=== PATIENT | male | born 1980 ===

== ENCOUNTER 2017-07-24 13:38 | Emergency (ER) | payer OTHER ==
[2017-07-24 14:05] VITALS: BP 118/72; PULSE 72; RESP 20; TEMP 98; O2SAT 100
[2017-07-24] MEDS ORDERED: Alum-Mag Hydrox-Simethicone Susp (30 mL) PO PRN (14:24)
--- NOTE | 2017-07-24 14:26 | C.PDOC ---
History Of Present Illness 37-year-old male w/o significant PMHx comes in for evaluation of painful swelling to right side of tongue noted two weeks ago. Pt also reports epigastric pain x1 month "after eating [employer] food." Pt reports, pain is intermittent associated with nausea. Otherwise, pt denies known trauma or injury , fever, chills, headache, weakness, neck pain, drooling, sore throat, chest pain , shortness of breath, cough, dyspnea, vomiting, hematemesis, melena, diarrhea, UTI sx. Ambulate to Ed for evaluation, not in any apparent distress.. Time Seen by Provider: 07/24/17 14:12 Chief Complaint (Nursing): ENT Problem History Per: Patient Onset/Duration Of Symptoms: Days Past Medical History Reviewed: Historical Data, Nursing Documentation, Vital Signs Vital Signs: Last Vital Signs Temp 98 F 07/24/17 14:02 Pulse 72 07/24/17 14:02 Resp 20 07/24/17 14:02 BP 118/72 07/24/17 14:02 Pulse Ox 100 07/24/17 16:02 Family History: States: No Known Family Hx - Social History Hx Alcohol Use: Yes Hx Substance Use: Yes Review Of Systems Except As Marked, All Systems Reviewed And Found Negative. Constitutional: Negative for: Fever, Chills Eyes: Negative for: Vision Change ENT: Positive for: Mouth Pain. Negative for: Ear Pain, Ear Discharge, Nose Discharge, Throat Pain, Throat Swelling Cardiovascular: Negative for: Chest Pain Respiratory: Negative for: Cough, Shortness of Breath, Wheezing Gastrointestinal: Positive for: Abdominal Pain. Negative for: Nausea, Vomiting , Diarrhea, Melena, Hematochezia, Hematemesis Musculoskeletal: Negative for: Neck Pain, Back Pain Skin: Negative for: Rash Neurological: Negative for: Altered Mental Status, Headache, Dizziness Physical Exam - Physical Exam Appears: Well, Non-toxic, No Acute Distress Skin: Normal Color, Warm, Dry, No Rash Head: Normacephalic Eye(s): bilateral: PERRL Nose: No Flaring, No Discharge Oral Mucosa: Moist, No Drooling Tongue: No Swelling, Lesions (slight tender swelling over lateral aspect right tongue likely bite. No discharge.) Lips: Normal Appearing Throat: No Erythema, No Drooling Neck: Supple Cardiovascular: Rhythm Regular Respiratory: No Decreased Breath Sounds, No Accessory Muscle Use, No Stridor, No Wheezing Gastrointestinal/Abdominal: Soft, Tenderness (midl epigastric), No Distention, No Guarding, No Rebound Back: No CVA Tenderness Extremity: Normal ROM, No Deformity, No Swelling Neurological/Psych: Oriented x3, Normal Speech ED Course And Treatment O2 Sat by Pulse Oximetry: 100 (RA) Pulse Ox Interpretation: Normal Progress Note: On re-evaluation, pt is afebrile, hemodynamicaly stable. Non- toxic. Tolerate Po well in ED. PulsEOx 100% RA. ENT: mild tender swelling over lateral aspect Right tongue, c/w bite. no other acute findings. neck: Supple, (-) meningeal sign. Lungs: CTA B/L, BS equal B/L. ABd: benign, (-) guarding, (-) rebound. Neurologicaly intact. Pt advised, ref. to f/u with PMD in1 -2 days for re-eval. return to ED if any worsening or new changes. Disposition Counseled Patient/Family Regarding: Diagnosis, Need For Followup, Rx Given - Disposition Referrals: [facility] [Outside] Disposition: HOME/ ROUTINE Disposition Time: 14:24 Condition: STABLE Additional Instructions: Encourage fluids Diet restriction for 1-2 weeks Take medication as prescribed Follow up with PMD in 2-3 days for re-evaluation as need return to ED if any worsening or new changes. Prescriptions: Famotidine [Pepcid] 20 mg PO BID #14 tab Pantoprazole Sodium [Protonix] 20 mg PO DAILY #20 ect Instructions: Gastritis Forms: [facility] (Portuguese) - Clinical Impression Clinical Impression: Epigastric pain, Tongue sore - Scribe Statement The provider has reviewed the documentation as recorded by the Scribe (Leobardo Ortega) All medical record entries made by the Scribe were at my direction and personally dictated by me. I have reviewed the chart and agree that the record accurately reflects my personal performance of the history, physical exam, medical decision making, and the department course for this patient. I have also personally directed, reviewed, and agree with the discharge instructions and disposition.
[2017-07-24] MEDS ORDERED: Alum-Mag Hydrox-Simethicone Susp (30 mL) ONE (14:42)
== END 2017-07-24 15:08 | disposition home or self-care (01) ==
LOC: C.ER 13:38
DX: R10.13 Epigastric pain (principal); K14.8 Other diseases of tongue